=== PATIENT | male | born 1950 | race Caucasian/White ===

== ENCOUNTER 2016-10-27 18:10 | Emergency (ER) | payer MEDICARE, BC ==
[2016-10-27] MEDS ORDERED: Sodium Chloride 0.9% 10 ML Syringe FLUSH PRN ×2 (19:11→19:12)
[2016-10-27] MEDS ORDERED: Sodium Chloride 0.9% 1,000 ML IV SCH ×3 (19:15→21:00)
[2016-10-27] MEDS ORDERED: fentaNYL 100 MCG/2 ML SDV IVPUSH ONE (19:40)
[2016-10-27] MEDS: Lactated Ringers 1,000 ML IV SCH ×2 (20:15→21:19)
[2016-10-27] MEDS ORDERED: LORazepam 2 MG/ML MDV IVPUSH STA (21:10)
[2016-10-27] MEDS ORDERED: Atropine 0.1 MG/ML 10 ML Syringe IV ONE (21:40)
[2016-10-27] MEDS ORDERED: Rocuronium 100 MG/10 ML MDV IVPUSH ONE (21:40)
[2016-10-27] MEDS ORDERED: Rocuronium 50 MG/5 ML Vial ONE ×2 (21:43→21:45)
[2016-10-27] MEDS ORDERED: Midazolam 1 MG/ML 5 ML SDV IVPUSH ONE (21:45)
[2016-10-27] MEDS ORDERED: Midazolam 1 MG/ML 5 ML SDV ONE (21:47)
--- NOTE | 2016-10-27 22:10 | EDM.PDOC ---
ED HPI GENERAL MEDICAL PROBLEM - General Chief Complaint: General Stated Complaint: BLURRED VISION,NUMBNESS,UNABLE TO URINATE Time Seen by Provider: 10/27/16 18:52 Source of Information: Reports: Patient, Family ( and daughter), RN Notes Reviewed, Other (All lab results and medication list obtained from [facility]) History Limitations: Reports: No Limitations - History of Present Illness INITIAL COMMENTS - FREE TEXT/NARRATIVE: Brought by his and daughter, reluctantly Limited past history as the patient is from out of town from [place] and records are not available immediately Chief complaint Blurred vision, decreased urination, back pain History of present illness 66-year-old male has been having some increased breathing difficulties over the last couple months. Since 2 days ago he's felt particularly unwell, more tired, more short of breath , and he's also been urinating less. He's noticed some blurring of his vision as well as colored flashes in his vision. No headaches no chest pain but he does feel that short of breath, mild back discomfort. He discloses to me that he 's had 5 or 6 black stools since 2 days ago as well, a fact he had not shared with his family. History of chronic alcoholism, alcohol consumption has reduced significantly in the past year. He's also had at least 2 episodes of pulmonary collapse/pneumothorax for which he needed intervention and apparently had some procedure with mesh placed. No history of heart disease, negative stress test years ago. No history of COPD or asthma He is being treated for hypertension and hyperlipidemia and is not on any blood thinners. He has had diverticulitis and half his colon was apparently resected No other abdominal surgery Middle Back Pain Score (Numeric/FACES): 8 - Related Data Allergies Allergy/AdvReac Type Severity Reaction Status Date / Time No Known Allergies Allergy Verified 10/27/16 18:51 Home Meds: Home Meds . [Unable to Verify Home Med List] 10/27/16 [History] Past Medical History Cardiovascular History: Reports: High Cholesterol, Hypertension, Other (See Below) Other Cardiovascular History: AAA Respiratory History: Reports: Pneumothorax Gastrointestinal History: Reports: Other (See Below) Other Gastrointestinal History: diverticulitis Musculoskeletal History: Reports: Gout, RA, Other (See Below) Other Musculoskeletal History: carpel tunnel surgery x2 Endocrine/Metabolic History: Reports: Other (See Below) Other Endocrine/Metabolic History: Borderline diabetic Hematologic History: Reports: Anemia, Blood Transfusion(s) - Infectious Disease History Infectious Disease History: Reports: Chicken Pox - Past Surgical History GI Surgical History: Reports: Colon, Colonoscopy Musculoskeletal Surgical History: Reports: Arthroscopic Procedure Social & Family History - Tobacco Use Smoking Status *Q: Former Smoker Years of Tobacco use: 30 Packs/Tins Daily: 1 Used Tobacco, but Quit: Yes Month Tobacco Last Used: August Second Hand Smoke Exposure: No - Caffeine Use Caffeine Use: Reports: Coffee - Alcohol Use Days Per Week of Alcohol Use: 7 Number of Drinks Per Day: 4 Total Drinks Per Week: 28 Date of Last Drink: 10/26/16 Time of Last Drink: 19:00 - Recreational Drug Use Recreational Drug Use: No ED ROS GENERAL - Review of Systems Review Of Systems: See Below Constitutional: Reports: Malaise, Fatigue, Diaphoresis. Denies: Fever HEENT: Reports: Vision Change (Including blurry vision). Denies: Eye Pain, Rhinitis Respiratory: Reports: Shortness of Breath. Denies: Wheezing, Pleuritic Chest Pain, Cough Cardiovascular: Reports: Dyspnea on Exertion, Lightheadedness. Denies: Chest Pain, Edema, Palpitations, Syncope Endocrine: Reports: Fatigue GI/Abdominal: Reports: Decreased Appetite, Melena, Nausea (With some retching but no vomiting). Denies: Diarrhea, Vomiting : Reports: Other (Decreased volume of urination). Denies: Dysuria, Flank Pain , Frequency Musculoskeletal: Reports: Back Pain. Denies: Neck Pain, Joint Pain, Joint Swelling Skin: Reports: No Symptoms, Other (Family has not noticed any change in color or appearance) Neurological: Reports: Difficulty Walking (Because of weakness), Weakness (On arrival needed wheelchair to come into the room). Denies: Headache, Numbness, Seizure, Syncope, Change in Speech Psychiatric: Reports: No Symptoms Hematologic/Lymphatic: Reports: No Symptoms Immunologic: Reports: No Symptoms ED EXAM, GENERAL - Physical Exam Exam: See Below Exam Limited By: No Limitations General Appearance: Alert, Mild Distress, Other (Hypotensive blood pressure 73 systolic and bradycardic rate 38, pale with some diaphoresis, alert and conversant) Eye Exam: Bilateral Eye: Normal Inspection Ears: Normal External Exam, Normal Canal Nose: Normal Inspection, Normal Mucosa Throat/Mouth: Normal Lips, Normal Oropharynx, Normal Voice, Other (Tongue was dry) Head: Atraumatic, Normocephalic Neck: Normal Inspection, Supple Respiratory/Chest: Lungs Clear, Normal Breath Sounds, Other (Increased respiratory rate). No: Wheezing, Prolonged Expiration Cardiovascular: Regular Rate, Rhythm, Bradycardia, Other (Poor peripheral pulses due to his hypotension) GI/Abdominal: Normal Bowel Sounds, Soft, Non-Tender, Distended. No: Rebound, Mass (Male) Exam: No Hernia Rectal (Males) Exam: Normal Exam, Other (Stool is yellow in color, submitted for Hemoccult which was positive) Back Exam: Normal Inspection Extremities: Non-Tender, Pallor (And coolness of his fingers). No: Pedal Edema Neurological: Alert, Oriented, Normal Cognition, No Motor/Sensory Deficits Psychiatric: Normal Affect, Normal Mood Skin Exam: Warm, Dry, No Rash, Pallor Lymphatic: No Adenopathy Course - Vital Signs Last Recorded V/S: Last Vital Signs Temp 35.9 C 10/27/16 21:52 Pulse 46 L 10/27/16 21:26 Resp 23 H 10/27/16 21:52 BP 103/65 10/27/16 21:52 Pulse Ox 91 L 10/27/16 21:14 - Orders/Labs/Meds Orders: Active Orders 24 hr Category Date Time Status EKG Documentation Completion [RC] ASDIRECTED Care 10/27/16 19:11 Active EKG Documentation Completion [RC] ASDIRECTED Care 10/27/16 21:11 Active Fecal Occult Blood Collection [RC] ASDIRECTED Care 10/27/16 20:19 Active [place] Catheter Insertion [Insert Urinary Catheter] [OM. Care 10/27/16 21:45 Ordered PC] Q24H [place] Catheter Insertion [Insert Urinary Catheter] [OM. Care 10/28/16 21:45 Ordered PC] Q24H Peripheral IV Care [RC] . DIRECTED Care 10/27/16 19:11 Active Peripheral IV Care [RC] . DIRECTED Care 10/27/16 19:12 Active Urinary Catheter Assessment [RC] ASDIRECTED Care 10/28/16 03:03 Active Chest 1V Frontal [CR] Stat Exams 10/27/16 19:40 Taken Chest 1V Frontal [CR] Urgent Exams 10/27/16 21:54 Taken Chest Abdomen Pelvis wo Cont [CT] Stat Exams 10/27/16 20:34 Taken CULTURE URINE [RM] Stat Lab 10/27/16 22:24 Received PATIENT RETYPE [BBK] Stat Lab 10/27/16 19:11 Results RED BLOOD CELLS LP [BBK] Stat Lab 10/27/16 19:11 Results TYPE AND SCREEN [BBK] Stat Lab 10/27/16 19:11 Results Lactated Ringers [Ringers, Lactated] 1,000 ml Med 10/28/16 01:00 Active IV ASDIRECTED Sodium Chloride 0.9% [Normal Saline] 1,000 ml Med 10/27/16 19:15 Active IV ASDIRECTED Sodium Chloride 0.9% [Normal Saline] 1,000 ml Med 10/27/16 20:30 Active IV ASDIRECTED Sodium Chloride 0.9% [Normal Saline] 1,000 ml Med 10/27/16 21:00 Active IV ASDIRECTED Sodium Chloride 0.9% [Saline Flush] Med 10/27/16 19:11 Active 10 ml FLUSH ASDIRECTED PRN Sodium Chloride 0.9% [Saline Flush] Med 10/27/16 19:12 Active 10 ml FLUSH ASDIRECTED PRN Peripheral IV Insertion Adult [OM.PC] Routine Oth 10/27/16 19:11 Ordered Peripheral IV Insertion Adult [OM.PC] Routine Oth 10/27/16 19:12 Ordered Transfuse Red Blood Cells [COMM] Stat Oth 10/27/16 21:29 Ordered EKG 12 Lead [EK] Routine Ther 10/27/16 19:11 Ordered EKG 12 Lead [EK] Routine Ther 10/27/16 21:10 Ordered Medication Orders Sodium Chloride (Normal Saline) 1,000 mls @ 900 mls/hr IV ASDIRECTED MARSHA Last Admin: 10/27/16 19:17 Dose: 900 mls/hr Sodium Chloride (Normal Saline) 1,000 mls @ 1,000 mls/hr IV ASDIRECTED MARSHA Lactated Ringer's (Ringers, Lactated) 1,000 mls @ 999 mls/hr IV ASDIRECTED MARSHA Stop: 10/31/16 02:01 Last Admin: 10/28/16 01:11 Dose: 999 mls/hr Infusion: 10/27/16 21:17 Dose: 999 mls/hr Admin: 10/27/16 20:15 Dose: 999 mls/hr Sodium Chloride (Normal Saline) 1,000 mls @ 125 mls/hr IV ASDIRECTED MARSHA Stop: 10/29/16 04:59 Sodium Chloride (Saline Flush) 10 ml FLUSH ASDIRECTED PRN PRN Reason: Keep Vein Open Last Admin: 10/27/16 19:18 Dose: 10 ml Sodium Chloride (Saline Flush) 10 ml FLUSH ASDIRECTED PRN PRN Reason: Keep Vein Open Last Admin: 10/27/16 19:19 Dose: 10 ml Labs: Laboratory Tests 10/27/16 10/27/16 10/27/16 Range/Units 19:11 19:15 19:15 WBC 12.5 H (4.5-11.0) K/uL RBC 2.97 L (4.30-5.90) M/uL Hgb 10.4 L (12.0-15.0) g/dL Hct 31.9 L (40.0-54.0) % MCV 107 H (80-98) fL MCH 35 H (27-31) pg MCHC 33 (32-36) % Plt Count 171 (150-400) K/uL PT (9.5-12.0) sec INR (0.80-1.20) ABG Hemoglobin (13.5-18.0) g/dL ABG Oxyhemoglobin % ABG Carboxyhemoglobin (0.0-1.6) % ABG Methemoglobin % VBG pH (7.350-7.450) VBG pCO2 mm/Hg VBG pO2 mm/Hg VBG HCO3 mmol/L VBG Total CO2 mmol/L VBG O2 Saturation VBG O2 Content %vol VBG Base Excess mm/L O2 Delivery Device Sodium 125 L (140-148) mmol/L Potassium 8.2 H* (3.6-5.2) mmol/L Chloride 99 L (100-108) mmol/L Carbon Dioxide 13 L (21-32) mmol/L Anion Gap 21.2 H (5.0-14.0) mmol/L BUN 85 H* (7-18) mg/dL Creatinine 7.8 H* (0.8-1.3) mg/dL Est Cr Clr Drug Dosing 9.62 mL/min Estimated GFR (MDRD) 7 L (>60) Glucose 120 H (74-106) mg/dL Lactic Acid (0.4-2.0) mmol/L Calcium 8.7 (8.5-10.1) mg/dL Total Bilirubin 0.2 (0.2-1.0) mg/dL AST 17 (15-37) U/L ALT 30 (12-78) U/L Alkaline Phosphatase 56 (46-116) U/L Troponin I < 0.017 (0.000-0.056) ng/mL Total Protein 7.5 (6.4-8.2) g/dL Albumin 3.4 (3.4-5.0) g/dL Globulin 4.1 H (2.3-3.5) g/dL Albumin/Globulin Ratio 0.8 L (1.2-2.2) Urine Color Urine Appearance Urine pH (4.5-8.0) Ur Specific Homer (1.008-1.030) Urine Protein (NEGATIVE) mg/dL Urine Glucose (UA) (NEGATIVE) mg/dL Urine Ketones (NEGATIVE) mg/dL Urine Occult Blood (NEGATIVE) Urine Nitrite (NEGAITVE) Urine Bilirubin (NEGATIVE) Urine Urobilinogen (NORMAL) mg/dL Ur Leukocyte Esterase (NEGATIVE) Urine RBC (0-5) Urine WBC (0-5) Ur Epithelial Cells Amorphous Sediment Urine Bacteria Urine Mucus Blood Type A POSITIVE Gel Antibody Screen Negative Crossmatch See Detail 10/27/16 10/27/16 10/27/16 Range/Units 19:15 19:55 20:20 WBC 13.0 H (4.5-11.0) K/uL RBC 2.69 L (4.30-5.90) M/uL Hgb 9.8 L (12.0-15.0) g/dL Hct 29.3 L (40.0-54.0) % MCV 109 H (80-98) fL MCH 36 H (27-31) pg MCHC 33 (32-36) % Plt Count 151 (150-400) K/uL PT 11.7 (9.5-12.0) sec INR 1.09 (0.80-1.20) ABG Hemoglobin (13.5-18.0) g/dL ABG Oxyhemoglobin % ABG Carboxyhemoglobin (0.0-1.6) % ABG Methemoglobin % VBG pH (7.350-7.450) VBG pCO2 mm/Hg VBG pO2 mm/Hg VBG HCO3 mmol/L VBG Total CO2 mmol/L VBG O2 Saturation VBG O2 Content %vol VBG Base Excess mm/L O2 Delivery Device Sodium (140-148) mmol/L Potassium (3.6-5.2) mmol/L Chloride (100-108) mmol/L Carbon Dioxide (21-32) mmol/L Anion Gap (5.0-14.0) mmol/L BUN (7-18) mg/dL Creatinine (0.8-1.3) mg/dL Est Cr Clr Drug Dosing mL/min Estimated GFR (MDRD) (>60) Glucose (74-106) mg/dL Lactic Acid 2.4 H (0.4-2.0) mmol/L Calcium (8.5-10.1) mg/dL Total Bilirubin (0.2-1.0) mg/dL AST (15-37) U/L ALT (12-78) U/L Alkaline Phosphatase (46-116) U/L Troponin I (0.000-0.056) ng/mL Total Protein (6.4-8.2) g/dL Albumin (3.4-5.0) g/dL Globulin (2.3-3.5) g/dL Albumin/Globulin Ratio (1.2-2.2) Urine Color Urine Appearance Urine pH (4.5-8.0) Ur Specific [place] (1.008-1.030) Urine Protein (NEGATIVE) mg/dL Urine Glucose (UA) (NEGATIVE) mg/dL Urine Ketones (NEGATIVE) mg/dL Urine Occult Blood (NEGATIVE) Urine Nitrite (NEGAITVE) Urine Bilirubin (NEGATIVE) Urine Urobilinogen (NORMAL) mg/dL Ur Leukocyte Esterase (NEGATIVE) Urine RBC (0-5) Urine WBC (0-5) Ur Epithelial Cells Amorphous Sediment Urine Bacteria Urine Mucus Blood Type Gel Antibody Screen Crossmatch 10/27/16 10/27/16 10/27/16 Range/Units 20:48 20:48 21:14 WBC (4.5-11.0) K/uL RBC (4.30-5.90) M/uL Hgb (12.0-15.0) g/dL Hct (40.0-54.0) % MCV (80-98) fL MCH (27-31) pg MCHC (32-36) % Plt Count (150-400) K/uL PT (9.5-12.0) sec INR (0.80-1.20) ABG Hemoglobin 9.3 L (13.5-18.0) g/dL ABG Oxyhemoglobin 56.7 % ABG Carboxyhemoglobin 1.3 (0.0-1.6) % ABG Methemoglobin 0.7 % VBG pH 7.063 L (7.350-7.450) VBG pCO2 33.0 mm/Hg VBG pO2 42.3 mm/Hg VBG HCO3 9.0 mmol/L VBG Total CO2 9.2 mmol/L VBG O2 Saturation 57.9 VBG O2 Content 7.5 %vol VBG Base Excess -19.9 mm/L O2 Delivery Device Nasal cannula Sodium 128 L (140-148) mmol/L Potassium 7.4 H* (3.6-5.2) mmol/L Chloride 102 (100-108) mmol/L Carbon Dioxide 13 L (21-32) mmol/L Anion Gap 20.4 H (5.0-14.0) mmol/L BUN 80 H* (7-18) mg/dL Creatinine 7.1 H* (0.8-1.3) mg/dL Est Cr Clr Drug Dosing 10.57 mL/min Estimated GFR (MDRD) 8 L (>60) Glucose 136 H (74-106) mg/dL Lactic Acid (0.4-2.0) mmol/L Calcium 7.9 L (8.5-10.1) mg/dL Total Bilirubin (0.2-1.0) mg/dL AST (15-37) U/L ALT (12-78) U/L Alkaline Phosphatase (46-116) U/L Troponin I 0.022 (0.000-0.056) ng/mL Total Protein (6.4-8.2) g/dL Albumin (3.4-5.0) g/dL Globulin (2.3-3.5) g/dL Albumin/Globulin Ratio (1.2-2.2) Urine Color Urine Appearance Urine pH (4.5-8.0) Ur Specific Homer (1.008-1.030) Urine Protein (NEGATIVE) mg/dL Urine Glucose (UA) (NEGATIVE) mg/dL Urine Ketones (NEGATIVE) mg/dL Urine Occult Blood (NEGATIVE) Urine Nitrite (NEGAITVE) Urine Bilirubin (NEGATIVE) Urine Urobilinogen (NORMAL) mg/dL Ur Leukocyte Esterase (NEGATIVE) Urine RBC (0-5) Urine WBC (0-5) Ur Epithelial Cells Amorphous Sediment Urine Bacteria Urine Mucus Blood Type Gel Antibody Screen Crossmatch 10/27/16 10/27/16 Range/Units 21:29 21:55 WBC (4.5-11.0) K/uL RBC (4.30-5.90) M/uL Hgb (12.0-15.0) g/dL Hct (40.0-54.0) % MCV (80-98) fL MCH (27-31) pg MCHC (32-36) % Plt Count (150-400) K/uL PT (9.5-12.0) sec INR (0.80-1.20) ABG Hemoglobin 9.0 L (13.5-18.0) g/dL ABG Oxyhemoglobin 64.5 % ABG Carboxyhemoglobin 1.5 (0.0-1.6) % ABG Methemoglobin 0.7 % VBG pH 7.093 L (7.350-7.450) VBG pCO2 28.8 mm/Hg VBG pO2 45.6 mm/Hg VBG HCO3 8.4 mmol/L VBG Total CO2 8.6 mmol/L VBG O2 Saturation 66.0 VBG O2 Content 8.2 %vol VBG Base Excess -19.9 mm/L O2 Delivery Device Nasal cannula Sodium (140-148) mmol/L Potassium (3.6-5.2) mmol/L Chloride (100-108) mmol/L Carbon Dioxide (21-32) mmol/L Anion Gap (5.0-14.0) mmol/L BUN (7-18) mg/dL Creatinine (0.8-1.3) mg/dL Est Cr Clr Drug Dosing mL/min Estimated GFR (MDRD) (>60) Glucose (74-106) mg/dL Lactic Acid (0.4-2.0) mmol/L Calcium (8.5-10.1) mg/dL Total Bilirubin (0.2-1.0) mg/dL AST (15-37) U/L ALT (12-78) U/L Alkaline Phosphatase (46-116) U/L Troponin I (0.000-0.056) ng/mL Total Protein (6.4-8.2) g/dL Albumin (3.4-5.0) g/dL Globulin (2.3-3.5) g/dL Albumin/Globulin Ratio (1.2-2.2) Urine Color Yellow Urine Appearance Cloudy Urine pH 5.0 (4.5-8.0) Ur Specific Homer 1.025 (1.008-1.030) Urine Protein 30 H (NEGATIVE) mg/dL Urine Glucose (UA) Normal (NEGATIVE) mg/dL Urine Ketones Negative (NEGATIVE) mg/dL Urine Occult Blood Large (NEGATIVE) Urine Nitrite Negative (NEGAITVE) Urine Bilirubin Negative (NEGATIVE) Urine Urobilinogen Normal (NORMAL) mg/dL Ur Leukocyte Esterase Moderate (NEGATIVE) Urine RBC 30-40 H (0-5) Urine WBC 10-20 H (0-5) Ur Epithelial Cells Not seen Amorphous Sediment Few Urine Bacteria Few Urine Mucus Not seen Blood Type Gel Antibody Screen Crossmatch Meds: Medications Generic Name Dose Route Start Last Admin Trade Name Freq PRN Reason Stop Dose Admin Sodium Chloride 1,000 mls @ 900 mls/hr 10/27/16 19:15 10/27/16 19:17 Normal Saline IV 900 mls/hr ASDIRECTED MARSHA Administration Sodium Chloride 1,000 mls @ 1,000 mls/hr 10/27/16 20:30 Normal Saline IV ASDIRECTED MARSHA Lactated Ringer's 1,000 mls @ 999 mls/hr 10/28/16 01:00 10/28/16 01:11 Ringers, Lactated IV 10/31/16 02:01 999 mls/hr ASDIRECTED MARSHA Administration Sodium Chloride 1,000 mls @ 125 mls/hr 10/27/16 21:00 Normal Saline IV 10/29/16 04:59 ASDIRECTED MARSHA Sodium Chloride 10 ml 10/27/16 19:11 10/27/16 19:18 Saline Flush FLUSH 10 ml ASDIRECTED PRN Administration Keep Vein Open Sodium Chloride 10 ml 10/27/16 19:12 10/27/16 19:19 Saline Flush FLUSH 10 ml ASDIRECTED PRN Administration Keep Vein Open Discontinued Medications Generic Name Dose Route Start Last Admin Trade Name Juan Antonio PRN Reason Stop Dose Admin Fentanyl 25 mcg 10/27/16 19:40 10/27/16 19:48 Sublimaze IVPUSH 10/27/16 19:41 25 mcg ONETIME ONE Administration Heparin Sodium (Porcine) Confirm 10/27/16 20:33 10/28/16 00:32 Heparin Lock Flush 100 Units/Ml Administered 10/27/16 20:34 Not Given Dose 500 units .ROUTE .STK-MED ONE Ciprofloxacin/Dextrose 400 mg/ 200 mls @ 200 mls/hr 10/27/16 22:22 10/27/16 22:20 Premix IV 10/27/16 23:21 200 mls/hr ONETIME ONE Administration Ciprofloxacin/Dextrose Confirm 10/27/16 22:23 10/28/16 00:40 Cipro In D5w 400 Mg/200 Ml Administered 10/27/16 22:24 Not Given Dose 200 mls @ as directed .ROUTE .STK-MED ONE Lorazepam 0.5 mg 10/27/16 21:10 10/27/16 21:34 Ativan IVPUSH 10/27/16 21:11 0.5 mg BEDTIME STA Administration Midazolam HCl Confirm 10/27/16 21:47 10/28/16 00:51 Versed 1 Mg/Ml Administered 10/27/16 21:48 Not Given Dose 10 mg .ROUTE .STK-MED ONE Midazolam HCl 10 mg 10/27/16 21:45 10/27/16 21:51 Versed 1 Mg/Ml IVPUSH 10/27/16 21:46 10 mg ONETIME ONE Administration Rocuronium [place] Confirm 10/27/16 21:43 10/28/16 00:40 Zemuron Administered 10/27/16 21:44 Not Given Dose 50 mg .ROUTE .STK-MED ONE Rocuronium [place] Confirm 10/27/16 21:45 10/28/16 00:41 Zemuron Administered 10/27/16 21:46 Not Given Dose 50 mg .ROUTE .STK-MED ONE Rocuronium [place] 100 mg 10/27/16 21:40 10/27/16 21:46 Zemuron IVPUSH 10/27/16 21:41 100 mg NOW ONE Administration - Re-Assessments/Exams Free Text/Narrative Re-Assessment/Exam: 10/27/16 22:14 66-year-old male with acute hypotension. History of aneurysm and melena. In addition to hypertension he has bradycardia so there several diagnoses to consider including GI bleed, diverticulitis, bowel perforation, ischemic bowel, sepsis, myocardial ischemia, ruptured aneurysm. Subsequent investigations show significant elevation of creatinine and potassium as well as acidosis indicating that this patient has acute shock of uncertain cause. Hemoglobin 10.6 which is unchanged from August although hemoglobin did decline to 9.8 during his stay here CT abdomen chest pelvis showed no evidence of aneurysmal rupture this was done without dye Creatinine over 7 Troponin normal EKG shows sinus bradycardia without any ST elevations EKG repeated unchanged, repeat troponin pending. General surgery was consult, central line established. Crossmatched for blood in view of his hypotension and history of melena. While arranging transfer, he became restless and agitated and then stopped breathing. Code was called he received cardiac compressions and airbag ventilation. During the code there are at least 2 pulse checks and it was uncertain whether he had adequate pulse so compressions were resumed. Atropine 1 mg IV for bradycardia. Rocuronium 100 mg and Versed 10 mg IV for sedation Intubated with a 7.5-gauge endotracheal tube, position confirmed by auscultation and by colorimetry. Pulse oxygen saturation began to rise as well. Blood pressure is erratic, sometimes rising as high as 169 and sometimes as low as in the 60s. 2 units of blood are being transfused He has received 2 L of intravenous fluid Urine is suspicious for infection with pyuria, however the lab result may be secondary to poor perfusion, culture has been ordered Cipro 400 mg IV ordered Transferred by air helicopter to Dr. Hodges at [facility] 10/27/16 22:25 10/27/16 23:33 Blood gases showed significant acidemia, repeat gases were ordered to determine if he needed intubation when he went into respiratory arrest Hyperkalemia was not treated prior to discharge, and he did not receive any bicarbonate. 10/27/16 23:34 This patient was critical care throughout his stay due to management of hypotension, multiple intravenous, insertion of central line, cardiopulmonary resuscitation, discussions with and daughter, review of lab tests x-rays imaging studies CT scan, administration of medications including atropine Versed and rocuronium. Total physician care time was 3 hours 34 minutes, critical care was from arrival at 1852 until code was called at 2137, discharge at 2226, total critical care 3 hours. 10/28/16 00:53 10/28/16 03:19 salinas catheter prior to transfer Departure - Departure Time of Disposition: 22:26 Disposition: DC/Tfer to [facility] 02 Condition: Serious Clinical Impression: Shock, Acute kidney injury, Pyuria, Hyperkalemia Hypotension Qualifiers: Hypotension type: unspecified hypotension type Qualified Code(s): I95.9 - Hypotension, unspecified - Discharge Information Referrals: PCP,None [Primary Care Provider] - - My Orders Last 24 Hours: My Active Orders 10/27/16 19:11 EKG Documentation Completion [RC] ASDIRECTED Peripheral IV Care [RC] . DIRECTED PATIENT RETYPE [BBK] Stat RED BLOOD CELLS LP [BBK] Stat TYPE AND SCREEN [BBK] Stat Sodium Chloride 0.9% [Saline Flush] 10 ml FLUSH ASDIRECTED PRN Peripheral IV Insertion Adult [OM.PC] Routine EKG 12 Lead [EK] Routine 10/27/16 19:12 Peripheral IV Care [RC] . DIRECTED Sodium Chloride 0.9% [Saline Flush] 10 ml FLUSH ASDIRECTED PRN Peripheral IV Insertion Adult [OM.PC] Routine 10/27/16 19:15 Sodium Chloride 0.9% [Normal Saline] 1,000 ml IV ASDIRECTED 10/27/16 19:40 Chest 1V Frontal [CR] Stat 10/27/16 20:19 Fecal Occult Blood Collection [RC] ASDIRECTED 10/27/16 20:30 Sodium Chloride 0.9% [Normal Saline] 1,000 ml IV ASDIRECTED 10/27/16 20:34 Chest Abdomen Pelvis wo Cont [CT] Stat 10/27/16 21:00 Sodium Chloride 0.9% [Normal Saline] 1,000 ml IV ASDIRECTED 10/27/16 21:10 EKG 12 Lead [EK] Routine 10/27/16 21:11 EKG Documentation Completion [RC] ASDIRECTED 10/27/16 21:29 Transfuse Red Blood Cells [COMM] Stat 10/27/16 21:45 [place] Catheter Insertion [Insert Urinary Catheter] [OM.PC] Q24H 10/27/16 22:24 CULTURE URINE [RM] Stat 10/28/16 01:00 Lactated Ringers [Ringers, Lactated] 1,000 ml IV ASDIRECTED 10/28/16 03:03 Urinary Catheter Assessment [RC] ASDIRECTED 10/28/16 21:45 [place] Catheter Insertion [Insert Urinary Catheter] [OM.PC] Q24H - Assessment/Plan Last 24 Hours: My Active Orders 10/27/16 19:11 EKG Documentation Completion [RC] ASDIRECTED Peripheral IV Care [RC] . DIRECTED PATIENT RETYPE [BBK] Stat RED BLOOD CELLS LP [BBK] Stat TYPE AND SCREEN [BBK] Stat Sodium Chloride 0.9% [Saline Flush] 10 ml FLUSH ASDIRECTED PRN Peripheral IV Insertion Adult [OM.PC] Routine EKG 12 Lead [EK] Routine 10/27/16 19:12 Peripheral IV Care [RC] . DIRECTED Sodium Chloride 0.9% [Saline Flush] 10 ml FLUSH ASDIRECTED PRN Peripheral IV Insertion Adult [OM.PC] Routine 10/27/16 19:15 Sodium Chloride 0.9% [Normal Saline] 1,000 ml IV ASDIRECTED 10/27/16 19:40 Chest 1V Frontal [CR] Stat 10/27/16 20:19 Fecal Occult Blood Collection [RC] ASDIRECTED 10/27/16 20:30 Sodium Chloride 0.9% [Normal Saline] 1,000 ml IV ASDIRECTED 10/27/16 20:34 Chest Abdomen Pelvis wo Cont [CT] Stat 10/27/16 21:00 Sodium Chloride 0.9% [Normal Saline] 1,000 ml IV ASDIRECTED 10/27/16 21:10 EKG 12 Lead [EK] Routine 10/27/16 21:11 EKG Documentation Completion [RC] ASDIRECTED 10/27/16 21:29 Transfuse Red Blood Cells [COMM] Stat 10/27/16 21:45 [place] Catheter Insertion [Insert Urinary Catheter] [OM.PC] Q24H 10/27/16 22:24 CULTURE URINE [RM] Stat 10/28/16 01:00 Lactated Ringers [Ringers, Lactated] 1,000 ml IV ASDIRECTED 10/28/16 03:03 Urinary Catheter Assessment [RC] ASDIRECTED 10/28/16 21:45 [place] Catheter Insertion [Insert Urinary Catheter] [OM.PC] Q24H
[2016-10-27] MEDS ORDERED: Ciprofloxacin in D5W 400 MG in Premix Bag 1 BAG IV ONE ×2 (22:22)
[2016-10-27] MEDS ORDERED: Ciprofloxacin in D5W 200 ML ONE (22:23)
[2016-10-28 03:36] VITALS: BP 68/36
--- NOTE | 2016-10-28 08:47 | CR ---
Chest 1V Frontal HISTORY: dyspnea hx lung collapse COMPARISON: None FINDINGS: No acute infiltrate is identified. There are mild scattered interstitial fibrotic changes. Possible mild cardiomegaly. Superior pulmonary vasculature is poorly prominent. No pleural fluid is seen. Bon y structures are unremarkable. IMPRESSION: Possible mild cardiomegaly with borderline pulmonary congestive changes. Probable mild scattered int erstitial fibrotic changes. Recommend clinical correlation and follow up.
--- NOTE | 2016-10-28 08:53 | CR ---
Chest 1V Frontal HISTORY: CENTRAL LINE PLACEMENT COMPARISON: Portable chest, 49 minutes prior. FINDINGS: Left subclavian central line is in place. The tip overlies the mid screening vena cava. Th ere is no pneumothorax, mediastinal widening, or other complication. Heart size is felt to be within normal limits for the AP technique. Mild atelectasis is noted right lung base. There are scattered interstitial fibrotic changes. Pulmonary vasculature is borderline prominent. Costophrenic angles ar e clear. Remainder the exam is unchanged. IMPRESSION: Satisfactory central line placement. Possible mild CHF similar to the earlier exam. Ther e is mild atelectasis right lung base.
--- NOTE | 2016-10-28 08:57 | CR ---
Chest 1V Frontal HISTORY: post intubation FINDINGS: Portable chest, 2151 hours. The spinal cord limits the exam. There is generalized cardiomegaly. Atherosclerotic aorta is noted. Superior pulmonary vasculature is prominent. Blunting of the costophrenic angle suggests a small valente unt of pleural fluid. No definite focal consolidation or interstitial edema is seen. Central line po sition is satisfactory with the tip overlying the mid SVC. Endotracheal tube has been placed in the interval. Tip of the endotracheal tube is about 3 cm above the abby and is in satisfactory positio n. Cardiac monitors and grounding pad overlying the chest IMPRESSION: 1. Satisfactory ET tube and central line placements. 2. Cardiomegaly and pulmonary congestive changes have worsened since the exam of approximately one h our prior.
--- NOTE | 2016-11-02 08:52 | OR ---
DATE OF PROCEDURE: 10/27/2016 PREOPERATIVE DIAGNOSIS: Inadequate peripheral venous access. POSTOPERATIVE DIAGNOSIS: Inadequate peripheral venous access. PROCEDURE: Insertion of left subclavian vein triple-lumen catheter. ANESTHESIA: Local. INDICATIONS FOR PROCEDURE: This 66-year-old is presenting with hypertension with unclear diagnosis. He also has advanced renal failure. At this point, he has been sick for around 3 days, has very limited peripheral venous access, and Dr. Zendejas of the emergency department requested a central line insertion to facilitate his management. The potential risks were reviewed with the patient's briefly, and they wished to proceed. DETAILS OF PROCEDURE: In the hospital bed, the patient was unable to lie flat, but we were to able to prep and drape the upper chest and neck areas and anesthetize his left subclavian area with some 1% lidocaine. The left subclavian vein could be cannulated with the guidewire positioned, and over the guidewire, a triple-lumen catheter was positioned. Good in and outflow was noted. Each of the ports were hooked up to the Lactated Ringer's at this point to facilitate fluid resuscitation, and the catheter was sutured to skin with some 3-0 silk stitch. Dressing was applied. There were no evident complications. Vinod Mcallister MD /[id number]
== END 2016-10-27 22:20 ==
LOC: JP.ED 18:10
DX: N17.9 Acute kidney failure, unspecified (principal); R57.9 Shock, unspecified; N39.0 Urinary tract infection, site not specified; E87.5 Hyperkalemia; I95.9 Hypotension, unspecified; R00.1 Bradycardia, unspecified; E78.00 Pure hypercholesterolemia, unspecified; M06.9 Rheumatoid arthritis, unspecified; Z98.890 Other specified postprocedural states; Z87.891 Personal history of nicotine dependence
CPT/HCPCS: 31500; 36415; 36430; 51702; 71010; 71250; 74176; 80048; 80053; 81001; 82272; 82803; 83605; 84484; 85027; 85610; 86850; 86900; 86901; 86920; 86922; 87086; 93005; 93010; 96361; 96374; 96375; 99291; 99292; J0461; J0744; J2060; J2250; J3010; J7040; J7050; J7120; P9016; 99285-25